=== PATIENT | male | born 1945 | race Caucasian/White ===

== ENCOUNTER → 2018-06-21 | Outpatient (CLI) | payer MEDICARE, BC ==
[~2018-06-21] MED LIST: ASPIR 8181 MG PO; CIPRO500 MG PO; FISH OIL 1,001000 M2; FISH OIL PO; LIPITOR40 MG PO; METFORMIN HCL500 MG PO; PLAVIX 75 MG TA75 M1; PROTONIX40 M1 PO; VITAMIN D1000 UNI1 PO; VITAMIN D3400 UNIT
[2018-06-21 10:28] LABS: ABSOLUTE BASOPHILS 0.1 thou/uL (0.0-0.2); ABSOLUTE EOSINOPHILS 0.3 thou/uL (0.0-0.7); ABSOLUTE LYMPHOCYTES 1.9 thou/uL (0.8-5.3); ABSOLUTE MONOCYTES 0.7 thou/uL (0.0-1.2); ABSOLUTE NEUTROPHILS 5.9 thou/uL (1.6-8.1); BASOPHILS 0.9 %; HEMATOCRIT 43.6 % (42.0-52.0); HEMOGLOBIN 14.4 gm/dL (14.0-18.0); LYMPHOCYTES 21.1 %; MCH 30.7 pg (26.0-34.0); MCV 93.3 fL (80.0-100.0); MONOCYTES 8.2 %; MPV 8.2 fl. (7.2-11.1); NUCLEATED RBCS 0 /100WBC; PLATELET COUNT* 277 thou/uL (150-400); POLYS 66.8 %; RBC 4.67 mil/uL (4.50-6.00); WBC 8.8 thou/uL (4.0-11.0)
[2018-06-21 10:49] LABS: ALBUMIN 3.8 g/dL (3.4-5.0); CALCIUM 9.2 mg/dL (8.5-10.1); POTASSIUM 3.9 mmol/L (3.5-5.1); TOTAL BILIRUBIN 0.5 mg/dL (<0.1-1.0); TOTAL PROTEIN 7.3 g/dL (6.4-8.2)
[2018-06-21 11:47] LABS: ESR (SEDRATE) 7 mm/hr (0-20)
== END ==
LOC: M.LAB 10:05
DX: D50.9 Iron deficiency anemia, unspecified (principal)

== ENCOUNTER → 2019-02-02 | Outpatient (CLI) | payer MEDICARE, BC | LOC: M.RAD 16:29 | DX: J15.8 Pneumonia due to other specified bacteria (principal) ==

== ENCOUNTER 2019-08-08 12:56 | Emergency (ER) | payer MEDICARE, BC ==
[~2019-08-08] VITALS: Ht 170.2 cm; Wt 67.1 kg
[2019-08-08] MEDS ORDERED: BENTYL 10 MG CA10 MG PO (13:21)
[2019-08-08 13:32] LABS: ABSOLUTE BASOPHILS 0.1 thou/uL (0.0-0.2); ABSOLUTE EOSINOPHILS 0.3 thou/uL (0.0-0.7); ABSOLUTE MONOCYTES 0.5 thou/uL (0.0-1.2); ABSOLUTE NEUTROPHILS 4.5 thou/uL (1.6-8.1); EOSINOPHILS 4.3 %; HEMATOCRIT 42.1 % (42.0-52.0); HEMOGLOBIN 14.1 gm/dL (14.0-18.0); MCH 29.8 pg (26.0-34.0); MCHC 33.4 g/dL (28.0-37.0); MCV 89.2 fL (80.0-100.0); MONOCYTES 7.2 %; MPV 7.8 fl. (7.2-11.1); NUCLEATED RBCS 0 /100WBC; PLATELET COUNT* 286 thou/uL (150-400); POLYS 60.5 %; RBC 4.73 mil/uL (4.50-6.00); RDW-CV 12.7 % (10.5-14.5); WBC 7.4 thou/uL (4.0-11.0)
[2019-08-08 13:41] LABS: CALCIUM 8.9 mg/dL (8.5-10.1); CREATININE 0.9 mg/dL (0.6-1.3); POTASSIUM 3.9 mmol/L (3.5-5.1)
[2019-08-08 13:47] LABS: ALBUMIN 3.4 g/dL (3.4-5.0); TOTAL BILIRUBIN 0.4 mg/dL (<0.1-1.0); TOTAL PROTEIN 6.6 g/dL (6.4-8.2)
[2019-08-08 13:54] LABS: APTT 23.8 Seconds (25.0-31.3); INR 1.1; PROTIME 11.1 Seconds (9.20-11.50)
[2019-08-08 14:00] VITALS: BP 162/77
--- NOTE | 2019-08-08 16:58 | EKG ---
[place] [address] ELECTROCARDIOGRAM REPORT Name: SHILOH ERVIN [id number] Admission: 08/08/19 Attend Phys: Discharge: 08/08/19 Date of : 43 Report #: [id number] THIS REPORT FOR: //name// [facility] ED Test Date: 2019-08-08 Test Time: 13:43:47 Pat Name: SHILOH ERVIN Department: Room: Gender: M Usability Specialist: : [id number] Requested By: Arpit Hoang Order Number: [id number] MD: Mega Shaw Measurements Intervals [place] Rate: 66 P: 71 KS: 130 QRS: -62 QRSD: 104 T: 26 QT: 399 QTc: 418 Interpretive Statements Sinus rhythm Left anterior fascicular block Abnormal R-wave progression, late transition Compared to ECG 10/05/2016 23:47:07 no change Electronically Signed On 08-08-2019 16:57:55 [employer] by Mega Shaw [email or web address] <ELECTRONICALLY SIGNED> By: Mega Shaw MD, [facility] 08/08/19 1657 134 42 Mega Shaw MD, FAC /EPI
== END 2019-08-08 14:00 | disposition short-term general hospital (02) ==
LOC: M.ERS 12:56
PROVIDERS: Family Medicine
DX: I62.9 Nontraumatic intracranial hemorrhage, unspecified (principal); E11.9 Type 2 diabetes mellitus without complications; I25.10 Atherosclerotic heart disease of native coronary artery without angina pectoris; Z90.49 Acquired absence of other specified parts of digestive tract; Z90.79 Acquired absence of other genital organ(s); Z86.73 Personal history of transient ischemic attack (TIA), and cerebral infarction without residual deficits; Z88.5 Allergy status to narcotic agent

== ENCOUNTER → 2020-03-08 | Outpatient (CLI) | payer MEDICARE, BC ==
[~2020-03-08] MED LIST changes: +BENTYL 10 MG CA10 MG PO
== END ==
LOC: M.ULTRA 13:30
PROVIDERS: ATTEND Internal Medicine Cardiovascular Disease
DX: I63.9 Cerebral infarction, unspecified (principal); M79.604 Pain in right leg; I10 Essential (primary) hypertension; E78.5 Hyperlipidemia, unspecified; I25.810 Atherosclerosis of coronary artery bypass graft(s) without angina pectoris; Z95.1 Presence of aortocoronary bypass graft